=== PATIENT | female | born 1965 | race Caucasian/White ===

== ENCOUNTER 2024-05-24 09:36 | Outpatient (CLI) | payer OTHER, SELFPAY ==
--- NOTE | ~2024-05-24 | DEXA_ITS ---
Bone Density Report Name: JERMAINE MELENDEZ Age: 58 Sex: Female Ethnicity: White Date of : 1965 Indication: postmenopausal; screening for osteoporosis; height loss; Referring Provider: MADELYN BURNS Study: Bone densitometry was performed. Exam Date: May 24, 2024 Accession number: [id number] Bone Density: Region BMD T-score Z-score Classification AP Spine(L1-L4) 0.656 -3.6 -2.4 Osteoporosis Femoral Neck (Left) 0.476 -3.4 -2.2 Osteoporosis Total Hip (Left) 0.758 -1.5 -0.7 Osteopenia Femoral Neck (Right) 0.555 -2.7 -1.5 Osteoporosis Total Hip (Right) 0.784 -1.3 -0.5 Osteopenia Total Hip Mean 0.771 -1.4 -0.6 Osteopenia World Health Organization criteria for BMD impression classify patients as: Normal (T-score at or above -1.0), Osteopenia (T-score between -1.0 and -2.5), or Osteoporosis (T-score at or below -2.5). 10-year Fracture Risk: FRAX not reported because: Some T-score for Spine Total or Hip Total or Femoral Neck at or below -2.5 Clinical Information Provided by Patient: Has used the following medications: Vitamin D, Calcium Patient maximum height was 69.5 Menopause Age: 52 No regular weight bearing exercise Drinks caffeinated beverages Onset of menses at age 14 Number of children 2 Impression: The patient has osteoporosis, based on the Total Spine T-score. Discussion: HIGH RISK OF FRACTURE. BONE DENSITY IS UNDESIRABLY LOW AT ONE OR MORE SKELETAL SITES, CONSISTENT WITH OSTEOPOROSIS. ALSO, BONE DENSITY IS LOWER THAN EXPECTED FOR AGE AND SEX AT ONE OR MORE SKELETAL SITES; RECOMMEND A DILIGENT SEARCH FOR SECONDARY CAUSES OF BONE LOSS. This patient's lowest T-score meets the World Health Organization's (WHO) criteria for osteoporosis at one or more sites (T-score -2.5 or below). In untreated patients, the risk of osteoporotic fracture increases approximately two-fold for each 1.0 SD decrease in T-score. Low bone density is not the only risk factor for fracture; also consider factors such as patient's age, frailty or poor health, risk of falling, risk of injury, previous osteoporotic fracture, family history of osteoporosis, cigarette smoking, low body weight, etc. Not everyone with low bone mineral density has osteoporosis; osteomalacia and other metabolic bone disorders should also be considered. Patients who have osteoporosis should be evaluated for specific diseases and conditions (secondary causes) that may cause or contribute to bone loss. The [place] Association [employer] Clinical Endocrinologists (AACE) and National Osteoporosis Foundation (NOF) recommend pharmacologic intervention for all postmenopausal women whose T-score is in this range. Also, this patient's bone mineral density is below the range considered normal for healthy age-, sex-, and race-matched controls at least one site (Z-score -2.0 or below). This warrants careful evaluation for diseases and conditions that may contribute to accelerated bone loss. The patient should follow a healthful lifestyle (good nutrition with adequate calcium and vitamin D, and appropriate weight-bearing exercise). Follow-Up: Consider a repeat BMD and Vertebral Fracture Assessment (VFA) exam in 2 years or sooner if medically necessary, to reassess this patient's status. Reported by: RAJ on 05/24/2024 10:17:00 AM. Reviewed, dictated and finalized at location A.
--- OUTSIDE RECORDS SUMMARY | 2024-05-24 09:40 | XMS_ITS | Encounter Summary ---
Author Organization [facility] Address Formerly [facility] [place] [address] Care Team Providers Care Rug Layer Name Role Phone Andry Eddy MD Primary Care Provider [phone] Stacy Wood [facility] Unavailable [phone] Stacy Wood [facility] Primary Care Provider + Renetta Hall [facility] Primary Care Provider + Romana Baires PA-C Primary Care Provider [phone] Encounter Details Date Type Department Care Team (Late st Contact Info) Description 12/14/2020 Proformative Message Enc [facility] Medical [facility] Family & Internal Medicine [address] [address] [facility] Provider 12/23/20 appointment Social History Tobacco Use Types Packs/Day Years Used Date Smoking Tobacco: Former Cigarettes 1 10 984 - 1993 Smokeless Tobacco: Never Alcohol Use Standard Drinks/Week Comments No 0 (1 standard drink = 0.6 oz pur e alcohol) AUDIT-C Answer Date Recorded Frequency of Alcohol Consumption Never 01/10/2018 Average Number of Drinks Not on file 018 Frequency of Binge Drinking Not on file 10/2017 PHQ-2 Answer Date Recorded PHQ-2 Score - If the patient scores above 3, please move on to questions 3-9 0 05/28/2020 Comments No Sex and Gender Information Value Date Recorded Sex Assigned at Not on file Legal Sex Female 7:07 PM CDT Gender Identity Not on file Sexual Orientation Not on file Occupation Industry Job Start Date Job End Date Not on file Not on file Not on file Not on file COVID-19 Exposure Response Date Recorded In the last month, have you been in contact with someone who was confirmed or suspected to have Coronavirus / COVID-19? No / Unsure 12/01/2020 3:43 PM CDT documented as of this encounter Plan of Treatment Not on file documented as of this encounter Visit Diagnoses Not on filedocumented in this encounter Care Teams Rug Layer Relationship Specialty [place] [address] [place] [address] PCP - General FAMILY PRACTICE 12/12/17 03/16/21 Stacy Wood [facility] [address] [place] [address] PCP - General Nurse Practitioner Family 03/17/2110/04 Renetta Hall, [facility] [address], [address] [place] [phone] PCP - General Nurse Practitioner Family 10/05/2205/03 Romana Baires PA-C [address] [place] [address] PCP - General PHYSICIAN COMPUTER SYSTEMS ARCHITECT 05/15/23 Stacy Wood [facility] [address] [place], [place] [id number] Nurse Practitioner Nurse Practitioner Family 03/17/21 05/14/23 documented as of this encounter
--- OUTSIDE RECORDS SUMMARY | 2024-05-24 09:40 | XMS_ITS | Encounter Summary ---
Author Organization [facility] Address [address] [place] [address] Care Team Providers Care Contracting Specialist Name Role Phone Andry Eddy MD Primary Care Provide r Encounter Details Date Type Department Care Team (Late st Contact Info) Description 05/21/2024 External Device Data [facility] Provider, Abstract NO ADDRESS ON FILE Social History Tobacco Use Types Packs/Day Years Used Date Smoking Tobacco: Former Cigarettes 1 12 1 04/03/1981 - 02/01/1994 Smokeless Tobacco: Never Alcohol Use Standard Drinks/Week Comments No 0 (1 standard drink = 0.6 oz pur e alcohol) Comments No Sex and Gender Information Value Date Recorded Sex Assigned at Not on file Legal Sex Female 6:10 AM BOTTOM STAINER Gender Identity Not on file Sexual Orientation Not on file 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
--- OUTSIDE RECORDS SUMMARY | 2024-05-24 09:40 | XMS_ITS | Encounter Summary ---
Author Organization [facility] Address [address] [place] [address] Care Team Providers Care Supervising Editor Trailer Name Role Phone Stacy Wood [facility] Unavailable [phone] Stacy Wood [facility] Primary Care Provider + Renetta Hall [facility] Primary Care Provider + Romana Baires PA-C Primary Care Provider [phone] Encounter Details Date Type Department Care Team (Late st Contact Info) Description 09/01/2022 motify Message Enc [facility] Medical Group Family & Internal Medicine [facility] [address] [place] [address] Stacy Wood [facility] [address] [place] [id number] appointment reschedule Social History Tobacco Use Types Packs/Day Years Used Date Smoking Tobacco: Former Cigarettes 1 10 984 - 1993 Passive Smoke Exposure: Past Smokeless Tobacco: Never Comments:former smoker Alcohol Use Standard Drinks/Week Comments No 0 (1 standard drink = 0.6 oz pur e alcohol) AUDIT-C Answer Date Recorded Frequency of Alcohol Consumption Never 01/10/2018 Average Number of Drinks Not on file 018 Frequency of Binge Drinking Not on file 10/2017 PHQ-2 Answer Date Recorded Patient Health Questionnaire-2 Score 0 05/22/2022 Comments No Sex and Gender Information Value [...] Diagnoses Not on filedocumented in this encounter Additional Health Concerns Assessment Noted Time PHQ-9 Depression Total Score: 2 01/07/20 21 8:19 AM CDT documented as of this encounter Care Teams Supervising Editor Trailer Relationship Specialty Start Date End Date Stacy Wood FNP-BC PCP - General Nurse Practitioner Family 03/17/2110/04 Renetta Hall FNP-BC [address], [address] [place] [phone] PCP - General Nurse Practitioner Family 10/05/2205/03 Romana Baires PA-C [address] [place] [phone] PCP - General PHYSICIAN LABORATORY OPERATIONS COORDINATOR 05/15/23 Stacy Wood FNP-BC Nurse Practitioner Nurse Practitioner Family 03/17/21 05/14/23 documented as of this encounter
--- OUTSIDE RECORDS SUMMARY | 2024-05-24 09:40 | XMS_ITS | Clinical Summary ---
Author Organization [facility] Address [facility] [place] [address] Care Team Providers Care Superintendent Commissary Name Role Phone Romana Baires PA-C Primary Care Provider [phone] Allergies Active Allergy Reactions Criticality Noted Date Comments Codeine Nausea Only,Nausea a nd Vomiting 10/20/2011 Latex Hives,Rash Low 02/02/2016 HAD LATEX BANDAGE ON FOOT AFTER SURGERY AND HAD REACTION RASH,BLISTERING Medications Multiple Vitamins tablet Take 1 tablet by mouth daily. Active probiotic capsule Take 1 capsule by mouth daily. Active loratadine 10 MG tablet Take 1 tablet (10 mg total) by mouth daily. Active folic acid 400 MCG tablet Take 1 tablet (400 mcg total) by mouth daily. Active B Complex Cap capsule Take 1 capsule by mouth daily. Active Ascorbic Acid (VITAMIN C OR) Activ e omeprazole (PRILOSEC) 20 MG capsuleIndicatio ns:Gastroesophag eal reflux disease, unspecified whether esophagitis present Take 1 capsule by mouth daily 90 capsule 09/14/2023 Active buPROPion XL (WELLBUTRIN XL) 150 MG 24 hr tabletIndication s:Recurrent major depressive disorder, in partial remission Take 1 tablet (150 mg total) by mouth every morning. 90 tablet 01/10/2024 Active Active Problems Problem Noted Date Diagnosed Date Sleep disturbance 11/14/2022 Class 2 obesity due to exces s calories without serious comorbidity with body mass index (BMI) of 36.0 to 36.9 in adult 10/26/2022 Vitamin D deficiency 10/26/2022 Caregiver stress 02/09/2019 Depression 08/13/2017 Lentigo 07/19/2015 GERD (gastroesophageal reflux disease) 04/16/201 5 Resolved Problems Problem Noted Date Diagnosed Date Resolved Date Counseling for concern about behavior of child 02/09/2019 10/26/2022 Dermatophytosis, body 08/13/20172022 Chronic otitis media 05/25/2016 023 Fatigue 05/25/2016 10/26/2022 Immunizations Name Administration Dates Next Due Afluria 36 MONTHS+ (Prefilled Syringe IIV4) 12/04 Fluarix (IIV4) 01/13/2020 Fluzone Adult - >Age 3 (Prefilled Syringe) 01/10 Influenza (Generic) 01/13/2020,12/28/2018 Influenza 3 yrs + Preservati ve Free (Fluzone) 01/10/2018 Influenza Adult (Generic) 11/25/2020,01/13/2020, 12/28/2018 PFIZER COVID-19 (ORIGINAL FO RMULATION, PURPLE CAP) mRNA, LNP-S, PF, 30 MCG/0.3 ML DOSE 12/31/2020,12/10/2020 Shingrix 11/12/2020,09/10/2020 Tdap (Historical Only-select from magnify glass) 03/29/2020 Family History Medical History Relation Comments Cancer Father lung Breast Cancer Maternal Aunt Heart Disease Mother A fib Cancer Sister 1 Breast Graves' disease Sister 2 Relation Status Comments Father Maternal Aunt Alive Mother Sister 1 Sister 2 Alive Social History Tobacco Use Types Packs/Day Years Used Date Smoking Tobacco: Former Cigarettes 1 10 1 984 - 1993 Passive Smoke Exposure: Past Smokeless Tobacco: Never Tobacco Cessation:Counseling Given: No Comments:former smoker Alcohol Use Standard Drinks/Week Comments No 0 (1 standard drink = 0.6 oz pur e alcohol) AUDIT-C Answer Date Recorded Frequency of Alcohol Consumption Never 01/10/2018 Average Number of Drinks Not on file 018 Frequency of Binge Drinking Not on file 10/2017 PHQ-2 Answer Date Recorded Patient Health Questionnaire-2 Score 0 07/02/2023 Comments No Sex and Gender Information Value Date Recorded Sex Assigned at Not on file Legal Sex Female 7:07 PM CDT Gender Identity Not on file Sexual Orientation Not on file Occupation Industry Job Start Date Job End Date Not on file Not on file Not on file Not on file Last Filed Vital Signs Vital Sign Reading Time Taken Comments Blood Pressure 138/88 02/08/2024 7:06 AM AVIATION PROGRAM MANAGER Pulse 93 02/08/2024 6:58 AM AVIATION PROGRAM MANAGER Temperature 37.3 C (99.2 F) 02/08/2024 6:58 AM AVIATION PROGRAM MANAGER Respiratory Rate 20 02/08/2024 6:58 AM AVIATION PROGRAM MANAGER Oxygen Saturation 98% 02/08/2024 6:58 AM AVIATION PROGRAM MANAGER Inhaled Oxygen Concentration - - Weight 112 kg (247 lb) 02/08/2024 6:58 AM AVIATION PROGRAM MANAGER Height 175.3 cm (5' 9) 02/08/2024 6:58 AM AVIATION PROGRAM MANAGER Body Mass Index 36.48 02/08/2024 6:58 AM AVIATION PROGRAM MANAGER Plan of Treatment Health Maintenance Due Date Last Done Comments Hepatitis C 07/05/1985 Hepatitis B Vaccines (1 of 3 - 19+ 3-dose series) 07/05/1986 Cervical Cancer Screening Pap Smear (Age 30 to 64) Every 3 Years 01/09/2021 01/09/2018 Annual Physical 01/06/2022 01/06/2021 COVID-19 Vaccine ( season) 2023 12/31/2020, 12/10/2020 Influenza Adult (#1) 2023 11/25/2020, 01/13/2020, 01/13/2020, Additional history exists Cervical Cancer Screening Pap with HPV Testing (Age 30 to 64) Every 5 Years 02/25/2024 02/24/2019, 01/09/2018 Cervical Cancer Screening with HPV 02/25/2024 PHQ-2 (Physician [place]) 03/05/2024 07/02/2023 Mammogram Screening 03/31/2024 03/31/2023, 03/25/2022, 03/25/2022, Additional history exists Colorectal Cancer Screening FIT-DNA (3 Years) 12/04/2025 12/04/2022, 12/04/2022, 11/22/2019, Additional history exists DTaP, Tdap and Td Vaccines (2 - Td or Tdap) 03/29/2030 03/29/2020 Zoster Vaccines Completed 11/12/2020, 09/10/2020 Meningococcal B Vaccine Aged Out No l onger eligible based on patient's age to complete this topic Meningococcal Vaccine Aged Out No neda isauro eligible based on patient's age to complete this topic Pneumococcal Vaccine: Pediatrics (0 to 5 Years) and At-Risk Patients (6 to 64 Years) Aged Out No longer eligible based on patient's age to complete this topic RSV Immunizations Under 20 Months Aged Out No longer eligible based on patient's age to complete this topic Procedures Procedure Name Priority Date/Time Associated Diagnosis Comments COLOGUARD (EXACT SCIENCE) Routine 12/04/2022 4:00 PM CDT Screening for colon cancer MAMMOGRAM GENERIC (SCAN ORDER) Routine 03/25/2022 OUTSIDE CYTOPATH CERV/VAG INTERPRET (PAP) 02/24/2019 from Last 3 Months or Most Recently Relevant to Health Maintenance Results * COLOGUARD (EXACT SCIENCE) (12/04/2022 4:00 PM CDT) COLOGUARD RESULT Negative Negative [employer] (CLIA #:[id number]) Comment: NEGATIVE TEST RESULT. A negative Cologuard result indicates a low likelihood that a colorectal cancer (CRC) or advanced adenoma (adenomatous polyps with more advanced pre-malignant features) is present. The chance that a person with a negative Cologuard test has a colorectal cancer is less than 1 in 1500 (negative predictive value >99.9%) or has an advanced adenoma is less than 5.3% (negative predictive value 94.7%). These data are based on a prospective cross-sectional study of 10,000 individuals at average risk for colorectal cancer who were screened with both Cologuard and colonoscopy. (Karri Chase al, N Engl J Med 2014;370(14):1926-4378) The normal value (reference range) for this assay is negative. COLOGUARD RE-SCREENING RECOMMENDATION: Periodic colorectal cancer screening is an important part of preventive healthcare for asymptomatic individuals at average risk for colorectal cancer. Following a negative Cologuard result, the [place] [employer] Society and U.S. Multi-Society Task Force screening guidelines recommend a Cologuard re-screening interval of 3 years. References: [place] [employer] Guideline for Colorectal Cancer Screening: https://www.cancer.org/cancer/hyxti-hfazyi-nkiige/ptkumytqs-qmwqqfaxz-nfxffqf/ac s-rec ommendations.html.; Cristhian DK, Davi CR, Eri KirbyK, Colorectal Cancer Screening: Recommendations for Physicians and Patients from the U.S. Multi-Society Task Force on Colorectal Cancer Screening , Am J Gastroenterology 2017; 112:6973-7746. TEST DESCRIPTION: Composite algorithmic analysis of stool DNA-biomarkers with hemoglobin immunoassay. Quantitative values of individual biomarkers are not reportable and are not associated with individual biomarker result reference ranges. Cologuard is intended for colorectal cancer screening of adults of either sex, 45 years or older, who are at average-risk for colorectal cancer (CRC). Cologuard has been approved for use by the U.S. FDA. The performance of Cologuard was established in a cross sectional study of average-risk adults aged 50-84. Cologuard performance in patients ages 45 to 49 years was estimated by sub-group analysis of near-age groups. Colonoscopies performed for a positive result may find as the most clinically significant lesion: colorectal cancer [4.0%], advanced adenoma (including sessile serrated polyps greater than or equal to 1cm diameter) [20%] or non- advanced adenoma [31%]; or no colorectal neoplasia [45%]. These estimates are derived from a prospective cross-sectional screening study of 10,000 individuals at average risk for colorectal cancer who were screened with both Cologuard and colonoscopy. (Karri Chase al, N Engl J Med 2014;370(14):0741-7702.) Cologuard may produce a false negative or false positive result (no colorectal cancer or precancerous polyp present at colonoscopy follow up). A negative Cologuard test result does not guarantee the absence of CRC or advanced adenoma (pre-cancer). The current Cologuard screening interval is every 3 years. ([place] [employer] and U.S. Multi-Society Task Force). Cologuard performance data in a 10,000 patient pivotal study using colonoscopy as the reference method can be accessed at the following location: www.Figma/results. Additional description of the Cologuard test process, warnings and precautions can be found at www.SkySQLrd.com. STOOL STOOL SPECIMEN / Unknown 12/04/2022 4:00 PM CDT 12/07/2022 1:51 AM CDT us Renetta Hall TRIPE FINISHER-BC BODY FLUIDS AND STOOLS O RDERABLES Final Result [facility] ([facility]) [address] [place] [address], [facility] (CLIA #:[id number]) [address] [place] [address] * MAMMOGRAM (03/25/2022) Anatomical Region Laterality Modality Other us Doc [facility] Scanned SCANNING Final Resu lt * OUTSIDE CYTOPATH VAG/CERV PAP WITH HPV (02/24/2019) 02/24/2019 Narrative 02/24/2019 Ordered by an unspecified provider. us Documents Scanned SCANNING Final Result from Last 3 Months or Most Recently Relevant to Health Maintenance Insurance [facility] Care Teams Superintendent Commissary Relationship Specialty Start Date End Date Romana Baires PA-C [address] [facility] [address] [place] [address] PCP - General PHYSICIAN CUSTOMER OPERATIONS SPECIALIST 05/15/23
--- OUTSIDE RECORDS SUMMARY | 2024-05-24 09:40 | XMS_ITS | Encounter Summary ---
Author Organization [facility] Address [facility]ly [facility] [place] [address] Care Team Providers Care Photographer Apprentice Lithographic Name Role Phone Andry Eddy MD Primary Care Provider [phone] Stacy Wood [facility] Unavailable [phone] Stacy Wood [facility] Primary Care Provider + Renetta Hall [facility] Primary Care Provider + Romana Baires PA-C Primary Care Provider [phone] Encounter Details Date Type Department Care Team (Late st Contact Info) Description 12/23/2019 [employer] Message Enc [facility] Family & Internal Medicine [address] [address] [place], [facility] Provider ogmilan Social History Tobacco Use Types Packs/Day Years Used Date Smoking Tobacco: Former Cigarettes Q uit: 1993 Smokeless Tobacco: Never Alcohol Use Standard Drinks/Week Comments No 0 (1 standard drink = 0.6 oz pur e alcohol) AUDIT-C Answer Date Recorded Frequency of Alcohol Consumption Never 01/10/2018 Average Number of Drinks Not on file 018 Frequency of Binge Drinking Not on file 10/2017 PHQ-2 Answer Date Recorded PHQ-2 Score 0 05/30/2019 Comments No Sex and Gender Information Value Date Recorded Sex Assigned at Not on file Legal Sex Female 7:07 PM CDT Gender Identity Not on file Sexual Orientation Not on file Occupation Industry Job Start Date Job End Date Not on file Not on file Not on file Not on file documented as of this encounter Progress Notes * Fabi Ellis - 12/23/2019 11:07 AM CDT Pt returned your call I read her your note V/U documented in this encounter Plan of Treatment Not on file documented as of this encounter Visit Diagnoses Not on filedocumented in this encounter Additional Health Concerns Infection Onset Date Last Indicated Resolved Time COVID-19 Rule Out 11/29/2020 11/29/2020 11/30/2020 6:50 PM CDT documented as of this encounter Care Teams Photographer Apprentice Lithographic Relationship Specialty [place] [address] [place] [address] PCP - General FAMILY PRACTICE 12/12/17 03/16/21 Stacy [facility] [address] [place] [address] PCP - General Nurse Practitioner Family 03/17/2110/04 Renetta Hall [facility]- [address] [address], [address] [address] PCP - General Nurse Practitioner Family 10/05/2205/03 Romana Baires PA-C [address] [address] PCP - General PHYSICIAN AIR MARSHAL 05/15/23 Stacy Wood [facility] [address] [facility] [place] [id number] Nurse Practitioner Nurse Practitioner Family 03/17/21 05/14/23 documented as of this encounter
--- OUTSIDE RECORDS SUMMARY | 2024-05-24 09:40 | XMS_ITS | Clinical Summary ---
Author Organization [facility] Address [address] [place] [address] Phone Care Team Providers Care Brooch And Bracelet Maker Name Role Phone Andry Eddy MD Primary Care Provide r Allergies Active Allergy Reactions Criticality Noted Date Comments Codeine Nausea and Vomiting Low 10/20/2011 Latex Rash Low 02/02/2016 Medications MULTIVIT &MINERALS/FERROUS FUM (MULTI VITAMIN ORAL) Take by mouth. Active LACTOBACILLUS ACIDOPHILUS (PROBIOTIC ORAL) Take by mouth daily . Active FERROUS FUMARATE/VIT BCOMP&C (SUPER B COMPLEX ORAL) Take by mouth daily . Active esomeprazole (NEXIUM) 40 mg Capsule, Delayed Release(E.C.) Take 40 mg by mouth every other day . Active LORATADINE ORAL Take by mouth. Active buPROPion HCl (WELLBUTRIN XL) 150 mg Extended Release 24 hour tablet TK 1 T PO QD 03/20/2019 Active Hospital, Clinic, or Other Facility Administered Medication Ordered Dose Route Frequency Start Date End Date Status conjugated estrogens (PREMARIN) 0.625 mg/gram vaginal cream 0.5 GramIndications:Vag inal atrophy 0.5 Gram Vaginal SEE ADMIN INSTRUCTIONS 01/08/2017 Active Active Problems No known active problems Resolved Problems Problem Noted Date Diagnosed Date Resolved Date H/O cervical polypectomy 02/05/201609/2017 Encounters Date Type Department Care Team Description 05/21/2024 External Device Data [facility]STRACTION Provider, Abstract 05/14/2024 External Device Data [facility] Provider, Abstract 05/13/2024 External Device Data [facility] Provider, Abstract 05/10/2024 External Device Data [facility] Provider, Abstract 05/07/2024 External Device Data [facility] Provider, Abstract 04/23/2024 External Device Data [facility] Provider, Abstract 03/27/2024 External Device Data [facility] Provider, Abstract 03/22/2024 11:08 AM ENGINEER FIRST ASSISTANT - 03/22/2024 11:59 PM ENGINEER FIRST ASSISTANT Hospital Encounter [facility] [address] [place] [id number] Andry Eddy MD Discharge Disposition: Home or Self Care 03/18/2024 External Device Data [facility] ABSTRACTION Provider, Abstract from Last 3 Months Family History Medical History Relation Name Comments Cancer Father lung Breast Cancer Maternal Aunt Heart Disease Maternal Grandmother Heart Disease Mother Hypertension Mother Breast Cancer Sister Ovarian Cancer Neg Hx Relation Name Status Comments Father Maternal Aunt Maternal Grandfather Maternal Grandmother Mother Paternal Grandfather Paternal Grandmother Sister Social History Tobacco Use Types Packs/Day Years Used Date Smoking Tobacco: Former Cigarettes 1 12 1 04/03/1981 - 02/01/1994 Smokeless Tobacco: Never Tobacco Cessation:Counseling Given: No Alcohol Use Standard Drinks/Week Comments No 0 (1 standard drink = 0.6 oz pur e alcohol) Comments No Sex and Gender Information Value Date Recorded Sex Assigned at Not on file Legal Sex Female 6:10 AM ENGINEER FIRST ASSISTANT Gender Identity Not on file Sexual Orientation Not on file 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 Not on file Not on file Not on file Last Filed Vital Signs Vital Sign Reading Time Taken Comments Blood Pressure 147/83 04/02/2019 1:36 PM ENGINEER FIRST ASSISTANT Pulse 92 04/02/2019 1:36 PM ENGINEER FIRST ASSISTANT Temperature 36.6 C (97.8 F) 02/05/2016 8:59 AM ENGINEER FIRST ASSISTANT Respiratory Rate 16 02/05/2016 8:59 AM ENGINEER FIRST ASSISTANT Oxygen Saturation 99% 02/05/2016 8:59 AM ENGINEER FIRST ASSISTANT Inhaled Oxygen Concentration - - Weight 111.6 kg (246 lb) 04/02/2019 1:36 PM ENGINEER FIRST ASSISTANT Height 175.3 cm (5' 9) 04/02/2019 1:36 PM ENGINEER FIRST ASSISTANT Body Mass Index 36.33 04/02/2019 1:36 PM ENGINEER FIRST ASSISTANT Plan of Treatment Health Maintenance Due Date Last Done Comments Pre-Diabetes and Diabetes Screening 1965 HEPATITIS B VACCINES (1 of 3 - 19+ 3-dose series) 07/05/1986 COLORECTAL SCREENING 07/05/2012 FIT-DNA Q 3 years 07/05/2012 Flex Sig/CT Colonography Q 5 years 07/05/2012 Colorectal Cancer Screening 12/28/2016 FIT/FOBT Q 1 year 12/28/2016 12/29/2015, , 11/14/2013 PAP SMEAR 01/09/2021 01/09/2018, 08/2016, 08/02/2016, Additional history exists INFLUENZA VACCINE (#1) 2023 , 12/28/2018, 01/10/2018 COVID-19 Vaccine (2023-2 5 season) 2023 12/31/2020, 12/10/2020 Preventative Visit- Commercial 03/05/2024 1 03/08/2020, 01/09/2018, 01/08/2017, Additional history exists BREAST CANCER SCREENING 03/22/2025 03/22/19, 03/31/2023, 03/25/2022, Additional history exists DTAP/TDAP/TD VACCINES (2 - T d or Tdap) 03/29/2030 03/29/2020 ZOSTER VACCINE Completed 11/12/2020, 09/10/2020 Procedures Procedure Name Priority Date/Time Associated Diagnosis Comments MAMMO 3D LIOR SCREEN BILAT W OR WO CAD Routine 03/22/2024 11:19 AM ENGINEER FIRST ASSISTANT Encounter for mammogram to establish baseline mammogram CERV/VAG CYTO SCREEN PAP W/O HPV Routine 01/09/2018 4:59 PM ENGINEER FIRST ASSISTANT Well woman exam with routine gynecological exam Screening for malignant neoplasm of cervix Special screening examination for human papillomavirus (HPV) POC OCCULT BLOOD 1 CARD Routine 12/29/2015 2:00 PM CDT Screening for malignant neoplasm of the rectum from Last 3 Months or Most Recently Relevant to Health Maintenance Results * MAMMO 3D LIOR SCREEN BILAT W OR WO CAD (03/22/2024 11:19 AM ENGINEER FIRST ASSISTANT) Anatomical Region Laterality Modality Breast Bilateral Mammography 03/22/2024 11:1 9 AM ENGINEER FIRST ASSISTANT Impressions 03/22/2024 11:58 AM ENGINEER FIRST ASSISTANT IMPRESSION: 1. No concerning findings. OVERALL FINAL ASSESSMENT: BI-RADS CATEGORY 1 - Negative. RECOMMENDATIONS: 1. Recommend annual mammography. DICTATION LOCATION: [facility]omara Garcia 03/22/2024 11:58 AM ENGINEER FIRST ASSISTANT BILATERAL SCREENING DIGITAL MAMMOGRAM WITH 3D TOMOSYNTHESIS AND CAD DATE: 03/22/2024 11:19 AM HISTORY: Routine yearly screening exam. TECHNIQUE: Low-dose full-field digital breast tomosynthesis examination was performed of both breasts with 2D and 3D acquisitions. CAD was utilized. COMPARISON: Studies dating back to February 2020 BREAST COMPOSITION: There are scattered areas of fibroglandular density. FINDINGS: No concerning dominant masses, suspicious calcifications, parenchymal asymmetries or areas of architectural distortion are identified in either breast. us External Provider [facility] MAMMO ORDERABLES Final R esult * CERV/VAG CYTO SCREEN PAP W/O HPV (01/09/2018 4:59 PM ENGINEER FIRST ASSISTANT) CLINICAL INFORMATION SEE COMMENT 01/16/2018 5:30 AM ENGINEER FIRST ASSISTANT [facility] Comment:Abnormal BONBON DIPPER exam LAST MENSTRUAL PERIOD SEE COMMENT 01/16/2018 5:30 AM [facility] Comment:Information not prov ided PREV PAP: SEE COMMENT 01/16/2018 5:30 AM [facility] Comment:01/08/17 NIL AGC 2016 PREV BX: 12//16 01/16/2018 5:30 AM [facility] SOURCE Endocervix 01/16/2018 5:30 AM [facility] ADEQUACY: SEE COMMENT 01/16/2018 5:30 AM [facility] Comment: Satisfactory for evaluation. Endocervical/transformation zone component present. PAP INTERP SEE COMMENT 01/16/2018 5:30 AM ENGINEER FIRST ASSISTANT [facility] Comment:Negative for intraep ithelial lesion or malignancy. COMMENT SEE COMMENT 01/16/2018 5:30 AM [facility] Comment: This Pap test has been evaluated with computer assisted technology. SENIOR ACCOUNTANT CPA: SEE COMMENT 2017 5:30 AM ENGINEER FIRST ASSISTANT [facility] Comment: KMY CT(ASCP) CT screening location: [facility] [place] [address] [place] [address] REVIEW SENIOR ACCOUNTANT CPA: SEE COMMENT 01/16/2018 5:30 AM ENGINEER FIRST ASSISTANT [facility] Comment: LMT, CT(ASCP) CT screening location: [place] [address] [address] [address] EXPLANATORY NOTE SEE COMMENT 018 5:30 AM ENGINEER FIRST ASSISTANT [facility] Comment: EXPLANATORY NOTE: The Pap is a screening test for cervical cancer. It is not a diagnostic test and is subject to false negative and false positive results. It is most reliable when a satisfactory sample, regularly obtained, is submitted with relevant clinical findings and history, and when the Pap result is evaluated along with historic and current clinical information. Genital SWAB OF ENDOCERVIX / Unknown Collection / Unknown 01/09/2018 4:59 PM ENGINEER FIRST ASSISTANT 01/09/2018 7:30 PM ENGINEER FIRST ASSISTANT Narrative [facility] - 01/16/2018 5:30 AM ENGINEER FIRST ASSISTANT Performing Organization Information: Site ID: SL Name: [facility] Address: [facility] [address] [place] [address] Director: Adin Rucker us Neema Rasmussen MD PATHOLOGY/CYTOLOGY ORDERABLES F inal Result [facility] * POC OCCULT BLOOD 1 CARD (12/29/2015 2:00 PM CDT) OCCULT BLOOD #1 Negative Negative [facility] Stool specimen (specimen) STOOL SPECIMEN / Unknown 12/29/2015 2:00 PM CDT us Randy Cates MD POINT OF CARE TESTING Fin al Result [facility] from Last 3 Months or Most Recently Relevant to Health Maintenance Insurance [facility] [id number] Advance Directives For more information, please contact: [phone] * Full Code (Latest Code Status on File) Date Activated Date Inactivated Comments 02/04/2016 9:19 PM 02/05/2016 11:54 AM * Full Code Date Activated Date Inactivated Comments 02/04/2016 6:29 PM 02/04/2016 9:19 PM * Full Code Date Activated Date Inactivated Comments 02/04/2016 12:06 PM 02/04/2016 6:29 PM Care Teams Brooch And Bracelet Maker Relationship Specialty [place] [address] [place] [address] PCP - General Family Practice 01/09/18
--- OUTSIDE RECORDS SUMMARY | 2024-05-24 09:40 | XMS_ITS | Encounter Summary ---
Author Organization [facility] Address [facility] [place] [address] Care Team Providers Care Hog Worker Name Role Phone Stacy Wood [facility]- Unavailable [phone] IsisStacy roman [facility] Primary Care Provider + Renetta Hall [facility] Primary Care Provider + Romana Baires PA-C Primary Care Provider [phone] Encounter Details Date Type Department Care Team (Late st Contact Info) Description 05/25/2022 [employer] Message Enc [facility] Family [facility] Internal Medicine [place] [address] [place] [address] Jason, [facility] Provider due for routine follow up Social History Tobacco Use Types Packs/Day Years [...] Exposure Response Date Recorded In the last 10 days, have yo u been in contact with someone who was confirmed or suspected to have Coronavirus/COVID-19? No / Unsure 05/22/2022 3:43 PM CDT documented as of this encounter Plan of Treatment Not on file documented as of this encounter Visit Diagnoses Not on filedocumented in this encounter Additional Health Concerns Assessment Noted Time PHQ-9 Depression Total Score: 2 01/07/20 21 8:19 AM CDT documented as of this encounter Care Teams Hog Worker Relationship Specialty Start Date End Date [facility] - General Nurse Practitioner Family 03/17/2110/04 Renetta Hall [facility] [address], [address] [place] [id number] PCP - General Nurse Practitioner Family 10/05/2205/03 Romana Baires PA-C [address] [place], [place] [id number] PCP - General PHYSICIAN PERSONNEL CONSULTANT 05/15/23 [facility] Nurse Practitioner Nurse Practitioner Family 03/17/21 05/14/23 documented as of this encounter
== END 2024-05-24 09:37 | disposition home or self-care (01) ==
LOC: ANHIMG 09:37
PROVIDERS: PCP Nurse Practitioner Family; Visit Provider Nurse Practitioner Family
DX: Z13.820 Encounter for screening for osteoporosis (principal); N95.8 Other specified menopausal and perimenopausal disorders; M81.0 Age-related osteoporosis without current pathological fracture; M85.852 Other specified disorders of bone density and structure, left thigh; M85.851 Other specified disorders of bone density and structure, right thigh
CPT/HCPCS: 77080